=== PATIENT | female | born 2000 | race American Indian/Alaskan Native ===

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

== ENCOUNTER 2020-06-17 11:42 | Outpatient (CLI) | payer OTHER ==
[2020-06-17 12:13] VITALS: BP 114/78
[2020-06-17] MEDS ORDERED: LACTATED RINGERS 500 ML IV ONE (13:21)
[2020-06-17 13:37] LABS: Bacteria,Urine 1+ /HPF (Negative); Bilirubin,Urine NEG (Negative); Blood,Urine NEG (Negative); Color,Urine Yellow (Yellow); Mucus,Urine FEW /HPF; Protein,Urine <15 mg/dL mg/dL (Negative)
== END 2020-06-17 14:25 | disposition home or self-care (01) ==
LOC: TRG 11:42 → APU 11:43 → TRG 14:25
PROVIDERS: ATTEND Obstetrics & Gynecology
DX: O42.912 Preterm premature rupture of membranes, unspecified as to length of time between rupture and onset of labor, second trimester (principal); Z3A.25 25 weeks gestation of pregnancy
CPT/HCPCS: 36415; 59025; 81001; 84112; 87086

== ENCOUNTER 2021-08-31 12:32 | Outpatient (CLI) | payer OTHER ==
--- NOTE | 2021-08-31 13:11 | Progress Note ---
Subjective - Subjective Date of service: 08/31/21 Principal diagnosis: Back pain , possible leaking Interval history: This is a 29 yo female patient , of Dr. Faulkner, who presented by EMS with back pain and possible ROM. No records available at this time. States ELVIA 11/14/21 with EGA 29 2/7wga. Right lower back pain started at 9a and became progressively worse at work. States she was evaluated for leaking Amniotic fluid ~1-2 weeks ago and still thinks she's leaking fluid. Also states minimal FM today. Afebrile VSS Alert and appropriately responsive Abd soft, NT SSE: No evidence of pooling SVE: 0/0/-3 FHT's: 150's +accels No UC's negative ROM + A/P: 29 2/7wga Lower back pain, no evidence of ROM or labor Of note, patient apparently fell in the bathroom and states she hit her head, states she needed to urinate and got dizzy when she entered the bathroom, she was able to stand and move to the bed without assistance, moved all extremities and remain alert and appropriately responsive. Will start IV fluids, check BMP and CBC and head CT w/o contrast. Also BPP and AMARILIS and observe. Patient reports: loss of fluid, contractions, other (lower back pain), no movement normal Objective - Vital Signs Vital Signs: Vital Signs - 12hr 08/31/21 12:53 Pulse Rate 86 Blood Pressure 97/51
[2021-08-31] MEDS ORDERED: ACETAMINOPHEN 500 MG TAB PO ONE (14:00)
[2021-08-31] MEDS ORDERED: LACTATED RINGERS 500 ML IV ONE (14:00)
[2021-08-31 14:10] VITALS: BP 106/55
[2021-08-31 15:06] LABS: Blood Urea Nitrogen 7 mg/dL (7-17); Calcium 8.3 mg/dL (8.4-10.2); Hemolysis Index 1
[2021-08-31 15:18] LABS: Bilirubin,Urine NEG (Negative); Blood,Urine NEG (Negative); Color,Urine Yellow (Yellow); Mucus,Urine FEW /HPF; Protein,Urine <15 mg/dL mg/dL (Negative); Urobilinogen,Urine < 2.0 mg/dL (<2.0)
[2021-08-31 15:18] LABS: Hematocrit 28.3 % (30.3-42.9); Hemoglobin 9.1 gm/dl (10.1-14.3); Mean Corpuscular HGB Conc 32 % (30-34); Mean Corpuscular Volume 91 fl (79-97); Platelet Count 151 K/mm3 (140-440); Red Blood Count 3.12 M/mm3 (3.65-5.03); Red Cell Distribution Width 15.1 % (13.2-15.2)
[2021-08-31 15:18] LABS: BUN/Creatinine Ratio 12
--- NOTE | 2021-08-31 15:49 | Cat Scan Report ---
CT head/brain wo con INDICATION / CLINICAL INFORMATION: 21 years Female; s/p head trauma. TECHNIQUE: Routine CT head without contrast. All CT scans at this location are performed using CT dos e reduction for ALARA by means of automated exposure control. COMPARISON: None. FINDINGS: BRAIN / INTRACRANIAL CONTENTS: No acute hemorrhage, mass effect, midline shift, hydrocephalus, or acu te, large territorial infarct. No signs of significant atrophy or chronic infarct. No significant whi te matter abnormality seen. CRANIOCERVICAL JUNCTION: No significant abnormality. ORBITS: No significant abnormality of visualized orbits. SINUSES / MASTOIDS: Mucous retention cyst/polyp is seen in the right maxillary antrum. ADDITIONAL FINDINGS: None. IMPRESSION: 1. No focal mass, hemorrhage, hydrocephalus, or acute, large territorial infarct. Signer Name: Jayden Vogt MD, III Signed: 08/31/2021 3:45 PM Workstation Name: [id number]
--- NOTE | 2021-08-31 16:50 | Event Note ---
Date: 08/31/21 Called to room to evaluate US image that reveals ? funnelling, however SVE still 0/0/-3, posterior and firm, external os 1cm. Patient on the phone during US and SVE exams directing [facility] to the facility.
--- NOTE | 2021-08-31 17:31 | Ultrasound Report ---
ULTRASOUND OBSTETRIC LIMITED ULTRASOUND BIOPHYSICAL PROFILE INDICATION / CLINICAL INFORMATION: well being, AMARILIS. COMPARISON: None available. FINDINGS: BREATHING MOVEMENT = 2 GROSS BODY MOVEMENT = 2 TONE = 2 QUALITATIVE AMNIOTIC FLUID VOLUME = 2 TOTAL BIOPHYSICAL SCORE = 8/8 AMNIOTIC FLUID INDEX (cm) = 17.1 PRESENTATION: Cephalic. HEART RATE (beats per minute): 146 ADDITIONAL FINDINGS: None. IMPRESSION: 1. Biophysical Score = 8/8 2. No significant abnormality. Signer Name: Cortez Lima MD Signed: 08/31/2021 5:27 PM Workstation Name: [id number]
--- NOTE | 2021-08-31 17:47 | Event Note ---
Date: 08/31/21 Cervical length 4.48cm. Will allow home with her OB tomorrow
--- NOTE | 2021-08-31 17:57 | Ultrasound Report ---
US OB LIMITED INDICATION: Evaluate cervical length. COMPARISON: Limited OB ultrasound performed earlier today. FINDINGS: Cervical length measures 4.5 cm. IMPRESSION: Normal cervical length of 4.5 cm. Signer Name: Cortez Lima MD Signed: 08/31/2021 5:53 PM Workstation Name: [id number]
== END 2021-08-31 18:05 | disposition home or self-care (01) ==
LOC: TRG 12:32 → APU 12:33 → TRG 18:05
PROVIDERS: ATTEND Obstetrics & Gynecology
DX: O26.893 Other specified pregnancy related conditions, third trimester (principal); M54.50 Low back pain, unspecified; M27.40 Unspecified cyst of jaw; Z3A.29 29 weeks gestation of pregnancy
CPT/HCPCS: 36415; 59025; 70450; 76815; 76817; 76819; 80048; 81001; 82731; 84112; 85027; 86850; 86900; 86901; 96360; 96361

== ENCOUNTER 2021-09-07 12:34 | Outpatient (CLI) | payer OTHER ==
[2021-09-07 12:56] VITALS: BP 94/55
[2021-09-07] MEDS ORDERED: LACTATED RINGERS 500 ML IV ONE (13:19)
--- NOTE | 2021-09-07 14:30 | Ultrasound Report ---
ULTRASOUND OBSTETRIC LIMITED ULTRASOUND BIOPHYSICAL PROFILE INDICATION / CLINICAL INFORMATION: FELL ON STOMACH - VIEW PLACENTA FOR R/O ABRUPTION. Clinical Gestational Age (GA): 30.2 weeks.days COMPARISON: 08/31/21. FINDINGS: BREATHING MOVEMENT = 2 GROSS BODY MOVEMENT = 2 TONE = 2 QUALITATIVE AMNIOTIC FLUID VOLUME = 2 TOTAL BIOPHYSICAL SCORE = 8/8 HEART RATE (beats per minute): 143 AMNIOTIC FLUID INDEX: Deepest vertical pocket measures 5.5 cm PRESENTATION: Cephalic. ADDITIONAL FINDINGS: The placenta is located anteriorly, is grade 2 and is free of the os. There are multiple small placental lakes. There is no evidence of abruption. IMPRESSION: 1. Biophysical Score = 8/8 2. No evidence of abruption. Signer Name: Chang Pichardo MD Signed: 09/07/2021 2:26 PM Workstation Name: [email or web address]
== END 2021-09-07 18:18 | disposition home or self-care (01) ==
LOC: APU 12:34 → TRG 12:34
PROVIDERS: ATTEND Obstetrics & Gynecology
DX: Z34.93 Encounter for supervision of normal pregnancy, unspecified, third trimester (principal); Z3A.28 28 weeks gestation of pregnancy
CPT/HCPCS: 59025; 76815; 76819

== ENCOUNTER 2021-09-25 20:04 | Outpatient (CLI) | payer OTHER ==
[2021-09-25] MEDS ORDERED: LACTATED RINGERS 500 ML IV ONE (21:49)
--- NOTE | 2021-09-25 22:38 | Ultrasound Report ---
ULTRASOUND OBSTETRIC LIMITED ULTRASOUND BIOPHYSICAL PROFILE INDICATION / CLINICAL INFORMATION: labor. COMPARISON: 09/07/2021 FINDINGS: BREATHING MOVEMENT = 2 GROSS BODY MOVEMENT = 2 TONE = 2 QUALITATIVE AMNIOTIC FLUID VOLUME = 2 TOTAL BIOPHYSICAL SCORE = 8/8 AMNIOTIC FLUID INDEX (cm) = 9.2 PRESENTATION: Cephalic. HEART RATE (beats per minute): 137 ADDITIONAL FINDINGS: None. IMPRESSION: 1. Biophysical Score = 8/8 Signer Name: Garcia Zavala MD Signed: 09/25/2021 10:34 PM Workstation Name: [email or web address]
--- NOTE | 2021-09-25 22:40 | Ultrasound Report ---
ULTRASOUND OBSTETRIC INDICATION / CLINICAL INFORMATION: labor. Clinical Gestational Age (GA): 30 week 6 day TECHNIQUE: Transabdominal. COMPARISON: None available. FINDINGS: There is a single intrauterine . Biparietal Diameter = 7.6 cm = 30 weeks, 2 day(s). Head Circumference = 30.0 cm = 33 weeks, 2 day(s). Abdominal Circumference = 24 cm = 28 weeks, 2 day(s). Femur Length = 6.1 cm = 31 weeks, 5 day(s). Average Ultrasound Age (AUA) = 30 weeks, 6 day(s). Heart Rate: 137 beats per minute. Estimated Weight in grams (if calculated): 1479 Estimated Weight Growth Percentile (if calculated): Position: cephalic. Cervix: closed. Length in cm (if measured): Placenta: anterior and free of the os. Amniotic Fluid Volume: normal Amniotic Fluid Index (AMARILIS) in cm (if calculated): 9.2. Maternal Adnexa: No significant abnormality. IMPRESSION: 1. Single, living intrauterine with estimated sonographic age of 30 weeks, 6 day(s). 2. No significant sonographic abnormality. Signer Name: Garcia Zavala MD Signed: 09/25/2021 10:36 PM Workstation Name: [id number]
== END 2021-09-25 22:28 | disposition home or self-care (01) ==
LOC: TRG 20:04 → APU 20:06 → TRG 22:28
PROVIDERS: ATTEND Obstetrics & Gynecology Gynecology
DX: O42.913 Preterm premature rupture of membranes, unspecified as to length of time between rupture and onset of labor, third trimester (principal); Z3A.30 30 weeks gestation of pregnancy
CPT/HCPCS: 76815; 76816; 76819